=== PATIENT | female | born 1980 | race Caucasian/White ===

== ENCOUNTER 2020-11-26 18:28 | Emergency (ER) | payer BC ==
[~2020-11-26] VITALS: Ht 175.3 cm; Wt 121.6 kg
[2020-11-26 20:04] LABS: *BILIRUBIN,URIN NEGATIVE (NEGATIVE); *BLOOD, URINE NEGATIVE (NEGATIVE); *CLARITY,URINE CLEAR (CLEAR); *COLOR,URINE YELLOW (YELLOW); *KETONES,URINE NEGATIVE (NEGATIVE); *UROBILINOGEN,URINE 0.2 E.U./dl (NORMAL); LEUKOCYTE ESTERASE ,URINE NEGATIVE (NEGATIVE); NITRITE, URINE NEGATIVE (NEGATIVE); PH,URINE 5.5 (5.0-8.0); UGLUCOSE NEGATIVE (NEGATIVE)
[2020-11-26 20:05] LABS: *URINE HCG, QUAL NEGATIVE (NEGATIVE)
[2020-11-26] MEDS ORDERED: DEXAMETHASONE 4 MG TABLET PO ONE (20:30)
[2020-11-26] MEDS ORDERED: DEXA4TAB PO (20:34)
[2020-11-26] MEDS ORDERED: AZIT250T PO (20:34)
[2020-11-26] MEDS ORDERED: DEXAMETHASONE 4 MG TABLET ONE (20:37)
[2020-11-26 20:40] VITALS: BP 127/82
--- NOTE | 2020-11-26 20:40 | NUR ---
Patient discharged to home in stable condition. Written and verbal after care instructions given. Patient verbalizes understanding of instructions. Stressed follow up or return to ER for worsening s/s.
== END 2020-11-26 20:41 | disposition home or self-care (01) ==
LOC: ER 18:28 → EDSEX 18:28 → ER 20:41
DX: U07.1 COVID-19 (principal); J12.82 Pneumonia due to coronavirus disease 2019; E03.9 Hypothyroidism, unspecified
CPT/HCPCS: 81003; 84703; 87426; 93005; 99284; J8540; A4663